=== PATIENT | female | born 1965 | race Caucasian/White ===

== ENCOUNTER 2021-04-21 18:51 | Inpatient (IN) | payer OTHER, SELFPAY ==
[2021-04-21] VITALS (9 sets, daily range): BP systolic 105–136; BP diastolic 82–98; PULSE 66–70; RESP 16–25; TEMP 35.5–37.1; O2SAT 97–100; BMI 31.1; BMI 27.8
--- NOTE | 2021-04-21 18:59 | EKG12_ITS ---
Test Reason : NEURO Blood Pressure : / mmHG Vent. Rate : 070 BPM Atrial Rate : 070 BPM P-R Int : 172 ms QRS Dur : 098 ms QT Int : 412 ms P-R-T Axes : 046 013 010 degrees QTc Int : 444 ms Normal sinus rhythm Normal ECG Confirmed by MARA RICO, SAIMA ([id number]), field map editor ISAMAR RANGEL ([id number]) on 04/24/2021 1:49:44 PM Referred By: BB Confirmed By:SAIMA TERRY MD
[2021-04-21 19:01] LABS: Bedside Glucose 107 mg/dL (70-110)
--- NOTE | 2021-04-21 19:01 | ED.VIS.STROK ---
HPI History of Present Illness Chief Complaint: Neuro S/Sx Informant: patient and spouse/S.O. Onset/Context/Timing Onset: Days (2-3) Context: Gradual Onset (With acute worsening about an hour prior to arrival) Timing: Continuous Quality and Location: Positive for Left Facial Droop, Left Face Parasthesia, Left Arm Parasthesia, Left Arm Weakness, Slurred Speech and Difficulty with Ambulation; Negative for Expressive Aphasia and Receptive Aphasia Current Severity: Moderate Maximum Severity: Moderate Worsened by: Unknown Relieved by: Unknown Associated Symptoms Associated Symptoms: Positive for Headache (Migraine), Nausea and Vomiting; Negative for Chest Pain Narrative Narrative: Patient with history of migraines but never neurologic symptoms, she states she started having a migraine for 3 days ago and has been there ever since, and she has had tingling in her left arm that started 3 days ago as well, as well as her left lower face. Today everything got worse, she was having weakness in her arm and trouble walking. 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 She states no surgery was recommended because of its precarious location. She has been compliant with her medications. She also took a Xanax and had some alcohol prior to arrival here [facility]. Along with the migraine, she has had retro-orbital right eye discomfort, nausea, vomiting, some blurred vision but no diplopia. Denies any recent head injury or recent illness. [facility] Medical History (Updated 04/21/21 @ 20:[address] Jose L France MD) Anxiety Carotid aneurysm, right Depression GERD (gastroesophageal reflux disease) Hyperlipidemia Hypertension Migraines Substance abuse Home Medications alprazolam 0.5 mg DAILY 04/21/21 [History Last Taken Unknown] amlodipine 10 mg DAILY 04/21/21 [History Last Taken Unknown] atorvastatin 10 mg DAILY 04/21/21 [History Last Taken Unknown] cetirizine [Zyrtec] 10 mg PO DAILY PRN 04/21/21 [History Last Taken Unknown] cholecalciferol (vitamin D3) [Vitamin D3] 125 mcg PO DAILY 04/21/21 [History Last Taken Unknown] clopidogrel 75 mg DAILY 04/21/21 [History Last Taken Unknown] duloxetine 60 mg PO DAILY 04/21/21 [History Last Taken Unknown] hydrochlorothiazide 25 mg DAILY 04/21/21 [History Last Taken Unknown] losartan 100 mg DAILY 04/21/21 [History Last Taken Unknown] metoprolol succinate 50 mg PO DAILY 04/21/21 [History Last Taken Unknown] omega-3 fatty acids-vitamin E [Fish Oil] 2 cap DAILY 04/21/21 [History Last Taken Unknown] Allergy/AdvReac Type Severity Reaction Status Date / Time No Known Allergies Allergy Verified 04/21/21 18:57 Social History Smoking Status: Never smoker ROS ROS ED Constitutional Constitutional ED: Denies chills or fever(s) Eyes Eyes: Reports as per HPI, blurry vision and photophobia; Denies diplopia ENT ENT ED: Denies rhinorrhea or sore throat Cardiovascular Cardiovascular: Denies chest pain or palpitations Respiratory/Chest Respiratory/Chest: Denies cough or dyspnea Gastrointestinal Gastrointestinal: Denies abdominal pain or diarrhea Genitourinary Genitourinary ED: Denies dysuria or hematuria Musculoskeletal Musculoskeletal: Denies back pain or neck pain Integumentary Denies abscess or rash Neurologic Neurologic: Reports as per HPI, headache(s), numbness and weakness Psychiatric Psychiatric: Denies anxiety or suicidal thoughts EXAM Physical Exam Const Vital Signs: 04/21/21 18:53 04/21/21 19:06 04/21/21 19:30 Temperature 95.9 F L Temperature Source Temporal Pulse Rate 70 70 66 Respiratory Rate 25 H 18 23 H Blood Pressure 136/98 H 123/95 H 107/82 H Blood Pressure Mean 110 104 90 Pulse Ox 99 99 97 Oxygen Delivery Method Room Air Room Air Room Air 04/21/21 20:00 04/21/21 20:12 Temperature Temperature Source Pulse Rate 66 Respiratory Rate 18 18 Blood Pressure 105/85 H Blood Pressure Mean 91 Pulse Ox 98 Oxygen Delivery Method Room Air Positive well nourished and well developed General Appearance ED: well developed and NAD HEENT Reports moist mucous membranes normocephalic and atraumatic Eyes PERRL and EOMs intact bilaterally Eyes Narrative: Mild photophobia. All visual patel intact. Neck full ROM and supple Resp normal respiratory effort and clear to auscultation bilaterally Cardio regular rate, regular rhythm and no murmurs GI non-tender and non-distended Auscultation: normoactive bowel sounds Palpation: soft Back/Spine no CVA tenderness General Back: other FROM Extremity normal to inspection General Extremety ED: Negative for edema, pulses abnormal or tenderness General Extremity: Negative for edema or pulses abnormal Neuro oriented x3 Sensorium / Orientation: awake and alert Psych mental status grossly normal Mood & Affect: anxious Skin no rashes or lesions noted and no wounds Rashes: no rashes STROKE Vital Signs/Narrative: Vital Signs Temp Pulse Resp BP Pulse Ox 04/21/21 20:12 18 04/21/21 20:00 66 18 105/85 H 98 04/21/21 19:30 66 23 H 107/82 H 97 04/21/21 19:06 70 18 123/95 H 99 04/21/21 18:53 95.9 F L 70 25 H 136/98 H 99 NIHSS Initial: 1a Level of Consciousness: 0 1b LOC Questions (Score 2 if aphasic/stupor): 0 1c LOC Commands (Only score 1st attempt): 0 2 Best Gaze (If aphasic, use reflexive mvmts.): 0 3 Visual: 0 4 Facial Palsy: 2 5 Motor Arm Right (UN = amputation/fusion): 0 5 Motor Arm Left: 1 6 Motor Leg Right: 0 6 Motor Leg Left: 0 7 Limb ataxia (Only + if out of proportion): 2 8 Sensory (Aphasia/stupor=0 or 1, coma=2): 1 9 Best Language: 0 10 Dysarthria (mute, coma=2, intubated=UN): 1 11 Extinction and Inattention (only scored if +): 0 Total Score: 7 MDM MDM MDM Narrative Medical decision making narrative: Patient's left arm weakness improved during the course of her ED observation/treatment, she was given some Reglan for her headache which did transiently improve. Certainly migraine headache with neurologic symptoms is in the differential, however she has never had that before with her migraines which have been chronically recurring, so the plan will be to admit her to the hospital for further imaging including MRI to rule out the possibility of acute ischemic stroke. Her vital signs are stable, CT angiography shows no LVO, and she does not meet any TPA criteria since her symptoms started couple days ago. CT and CT angiography did note the large calcified right carotid artery aneurysm at the base of her skull, there is flow through it. Lab Data Attestation: I reviewed the patient's lab results. Labs: Laboratory Results - last 24 hr 0504/21/21 04/21/21 18:56 19:02 19:02 WBC 5.7 RBC 4.34 Hgb 13.3 Hct 40.0 MCV 92.2 MCH 30.6 MCHC 33.3 RDW Std Deviation 41.9 RDW Coeff of Naveed 12.3 Plt Count 215 MPV 9.0 Immature Gran % (Auto) 0.400 Neut % (Auto) 66.3 Lymph % (Auto) 20.7 Lander % (Auto) 10.0 Eos % (Auto) 2.1 Baso % (Auto) 0.5 Absolute Neuts (auto) 3.8 Absolute Lymphs (auto) 1.18 Nucleated RBC % 0 PT 11.7 INR 0.9 APTT 25.6 Sodium Potassium Chloride Carbon Dioxide Anion Gap BUN Creatinine Estim Creat Clear Calc Est GFR (MDRD) Af Amer Est GFR (MDRD) Non-Af BUN/Creatinine Ratio Glucose Calcium Troponin I POC Glucose 107 04/21/21 04/21/21 19:02 19:44 WBC RBC Hgb Hct MCV MCH MCHC RDW Std Deviation RDW Coeff of Naveed Plt Count MPV Immature Gran % (Auto) Neut % (Auto) Lymph % (Auto) Lander % (Auto) Eos % (Auto) Baso % (Auto) Absolute Neuts (auto) Absolute Lymphs (auto) Nucleated RBC % PT INR APTT Sodium 134 L Potassium 3.8 Chloride 102 Carbon Dioxide 22.0 Anion Gap 10 BUN 10 Creatinine 0.92 Estim Creat Clear Calc 60.71 Est GFR (MDRD) Af Amer 81 Est GFR (MDRD) Non-Af 67 BUN/Creatinine Ratio 10.9 Glucose 101 Calcium 9.0 Troponin I < 0.015 POC Glucose 98 Radiography Diagnostic Testing: Radiology Impression Brain CT 04/21/21 19:30 IMPRESSION: 1. No acute intracranial abnormality. There is minimal small vessel ischemia in the right frontal lobe. 2. Large peripherally calcified structure at the right skull base which may represent a large partly calcified aneurysm of the distal right internal carotid artery. Further evaluation with CTA of the carotid and cranial vessels is recommended. 3. Aspects score 10 Individualized dose optimization techniques were used for this CT. at 1945 Reported and signed by: Herminio Churchill MD Electronically Signed: Herminio Churchill MD at 19:44 EDT Tel , Service support , ADDENDUM: 04/21/211956 IMPRESSION: 1. No acute intracranial abnormality. There is minimal small vessel ischemia in the right frontal lobe. 2. Large peripherally calcified structure at the right skull base which may represent a large partly calcified aneurysm of the distal right internal carotid artery. Further evaluation with CTA of the carotid and cranial vessels is recommended. 3. Aspects score 10 Individualized dose optimization techniques were used for this CT. at 1945 Reported and signed by: Herminio Churchill MD N.B. : The above information has been verbally conveyed by Herminio Churchill MD to Jose L France MD , , on 04/21/2021 19:50:58 (ET). Electronically Signed: Herminio Churchill MD at 19:44 EDT Tel , Service support , Chest X-Ray 04/21/21 19:33 IMPRESSION: No radiographic evidence of acute cardiopulmonary disease. at 2009 Reported and signed by: Herminio Churchill MD Electronically Signed: Herminio Churchill MD at 20:08 EDT Tel , Service support , Head/Neck CTA 04/21/21 19:33 IMPRESSION: Large peripherally calcified aneurysm of the distal right internal carotid artery that extends from the C3 vertebral body up to the skull base. There is some soft plaque also present within the aneurysm. There is no evidence of rupture or leakage. No other abnormalities are identified. Individualized dose optimization techniques were used for this CT. at 1956 Reported and signed by: Herminio Churchill MD Electronically Signed: Herminio Churchill MD at 19:55 EDT Tel , Service support , ADDENDUM: 04/21/212012 IMPRESSION: Large peripherally calcified aneurysm of the distal right internal carotid artery that extends from the C3 vertebral body up to the skull base. There is some soft plaque also present within the aneurysm. There is no evidence of rupture or leakage. No other abnormalities are identified. Individualized dose optimization techniques were used for this CT. at 1956 Reported and signed by: Herminio Churchill MD N.B. : The above information has been verbally conveyed by Herminio Churchill MD to Jose L France MD, , on 04/21/2021 20:06:06 (ET). Electronically Signed: Herminio Churchill MD at 19:55 EDT Tel , Service support , EKG Initial EKG: Attestation: I personally reviewed and interpreted this EKG as follows: Interpretation: Sinus Rhythm and No Acute Injury Pattern Comments: Normal EKG Stroke Documentation Questions Stroke Team Activated: No (Due to timing, 2-3 days of symptoms) Was Patient considered for Endovascular Intervention?: No (Negative CTA) IV Alteplase (t-PA) Administered: No (Not indicated due to timing) Discharge Plan Dx/Rx/DC Orders Clinical Impression: Acute left hemiparesis, Headache, migraine, Aneurysm of extracranial portion of right internal carotid artery Disposition Disposition: Acute Care [facility]
--- NOTE | 2021-04-21 19:03 | ED.RN ---
NO OLD EKGS IN MUSE
[2021-04-21] MEDS: Metoclopramide 10 MG/2 ML Vial 5 MG IV (19:08)
[2021-04-21 19:09] LABS: Absolute Lymphocyte Count 1.18 X10^3/uL (0.83-4.51); Absolute Neutrophil Count 3.8 X10^3/uL (2.0-7.7); Basophil# 0.03 X10^3/uL; Basophil% 0.5 % (0-1); Eosinophil# 0.12 X10^3/uL; Eosinophils% 2.1 % (0-5); Hemoglobin 13.3 g/dL (12.0-15.0); Lymphocyte # 1.18 X10^3/ul (0.83-4.51); Lymphocyte % 20.7 % (19-41); Mean Corp Hgb Conc 33.3 g/dL (32-36); Mean Corpuscular Hgb 30.6 pg (27.0-32.0); Mean Corpuscular Volume 92.2 fL (81-99); Monocyte# 0.57 X10^3/uL; NRBC Flagged by Analyzer 0 % (0-5); Neutrophil # 3.78 X10^3/uL (2.7-7.7); Neutrophil % 66.3 % (47-70); Platelet Count 215 K/mm3 (150-450); RBC Distribution Width CV 12.3 % (11.6-14.6); RBC Distribution Width SD 41.9 fl (35.1-43.9); Red Blood Count 4.34 M/mm3 (4.2-5.4); White Blood Count 5.7 K/mm3 (4.4-11.0)
[2021-04-21 19:19] LABS: International Normalized Ratio 0.9; Prothrombin Time (Protime)PT. 11.7 SECONDS (11.7-14.9)
[2021-04-21 19:20] LABS: Partial Thromboplast Time 25.6 Seconds (24.1-36.2)
[2021-04-21 19:28] LABS: Anion Gap 10 (5-15); BUN 10 mg/dL (7-18); BUN/Creat Ratio 10.9 RATIO (10-20); Chloride 102 mmol/L (98-107); Creatinine, Serum 0.92 mg/dL (0.55-1.02); EST Glomerular Filtration Rate 67 mL/min (>60); Est Glom Filt Rate - Afr Amer 81 mL/min (>60); Estimated Creatinine Clearance 60.71 ml/min; Glucose 101 mg/dL (74-106); Potassium 3.8 mmol/L (3.5-5.1); Sodium Level 134 mmol/L (136-145)
--- NOTE | 2021-04-21 19:30 | CT_ITS ---
We are attempting to reach an attending provider to discuss findings. An addendum with communication details will be sent when the communication is complete. EXAM: CT HEAD WITHOUT INTRAVENOUS CONTRAST : 1965 CLINICAL INDICATION: Neuro deficit, acute, stroke suspected TECHNIQUE: Multiple axial images were obtained of the head without intravenous contrast. This CT exam was performed using one or more of the following dose reduction techniques: automated exposure control, adjustment of the mA and/or kV according to patient size, and/or use of iterative reconstruction technique. This report was created using [employer] report [employer] technology. COMPARISON: None FINDINGS: BRAIN AND EXTRA-AXIAL SPACES: There is minimal hypoattenuation in the subcortical white matter of the right frontal lobe. No intra- or extra-axial hemorrhage. No evidence of acute infarct. No intracranial mass or mass effect. There is preservation of the galeas/white matter interface. Posterior fossa structures are unremarkable. Ventricles are appropriate for age. No hydrocephalus. Basal cisterns are patent. BONES/JOINTS: Unremarkable. No discrete lytic or blastic abnormalities. VASCULATURE: There is a large peripherally calcified tubular structure at the right skull base that measures 2.5 x 2.9 cm which may represent a large peripherally calcified aneurysm of the distal internal carotid artery. SINUSES: Unremarkable as visualized. Clear. MASTOID AIR CELLS: Unremarkable. Clear. ORBITS: Visualized globes, extraocular muscles, optic nerves and retrobulbar fat appear unremarkable. CT/STROKE Brain/Head without Cont IMPRESSION: 1. No acute intracranial abnormality. There is minimal small vessel ischemia in the right frontal lobe. 2. Large peripherally calcified structure at the right skull base which may represent a large partly calcified aneurysm of the distal right internal carotid artery. Further evaluation with CTA of the carotid and cranial vessels is recommended. 3. Aspects score 10 Individualized dose optimization techniques were used for this CT. at 1945 Reported and signed by: Herminio Churchill MD Electronically Signed: Herminio Churchill MD at 19:44 EDT Tel , Service support ,
--- NOTE | 2021-04-21 19:33 | CT_ITS ---
We are attempting to reach an attending provider to discuss findings. An addendum with communication details will be sent when the communication is complete. EXAM: CT ANGIOGRAPHY HEAD AND NECK WITH INTRAVENOUS CONTRAST : 1965 CLINICAL INDICATION: Neuro deficit, acute, stroke suspected TECHNIQUE: [employer] [place] [facility] [place]/head and neck CT angiography protocol performed with intravenous contrast. This CT exam was performed using one or more of the following dose reduction techniques: automated exposure control, adjustment of the mA and/or kV according to patient size, and/or use of iterative reconstruction technique. This report was created using [employer] report generation technology. MIP reconstructed images were created and reviewed. CONTRAST: IV 100mL [id number] COMPARISON: None. FINDINGS: HEAD: RIGHT ANTERIOR CEREBRAL ARTERY: Unremarkable. No significant stenosis at the visualized segments. Anterior communicating artery is present. No aneurysm. RIGHT MIDDLE CEREBRAL ARTERY: Unremarkable. No significant stenosis at the visualized segments. No aneurysm. RIGHT POSTERIOR CEREBRAL ARTERY: Unremarkable. No occlusion or significant stenosis. No aneurysm. LEFT ANTERIOR CEREBRAL ARTERY: Unremarkable. No significant stenosis at the visualized segments. No aneurysm. LEFT MIDDLE CEREBRAL ARTERY: Unremarkable. No significant stenosis at the visualized segments. No aneurysm. LEFT POSTERIOR CEREBRAL ARTERY: Unremarkable. No occlusion or significant stenosis. No aneurysm. BASILAR ARTERY: Unremarkable. No significant stenosis. No aneurysm. GREAT VESSELS OF AORTIC ARCH: Unremarkable. Normal anatomy, patent. OTHER VASCULATURE: No vascular malformation. NECK: RIGHT COMMON CAROTID ARTERY: Unremarkable. No significant stenosis. No dissection or occlusion. RIGHT INTERNAL CAROTID ARTERY: There is a large peripherally calcified aneurysm of the distal right internal carotid artery that measures 2.8 x 3.1 x 7.0 cm. Begins approximately at the C3 level and extends up to the skull base. There is a large amount of soft plaque posteriorly but there is no evidence of stenosis or occlusion within this aneurysm. There is no rupture. RIGHT EXTERNAL CAROTID ARTERY: Unremarkable. No occlusion. RIGHT VERTEBRAL ARTERY: Unremarkable. No significant stenosis. No dissection or occlusion. LEFT COMMON CAROTID ARTERY: Unremarkable. No significant stenosis. No dissection or occlusion. LEFT INTERNAL CAROTID ARTERY: Unremarkable. No significant stenosis. No dissection or occlusion. LEFT EXTERNAL CAROTID ARTERY: Unremarkable. No occlusion. LEFT VERTEBRAL ARTERY: Unremarkable. No significant stenosis. No dissection or occlusion. LUNG APICES: Unremarkable as visualized. SOFT TISSUES: Unremarkable. CAROTID STENOSIS REFERENCE USING NASCET CRITERIA: % ICA stenosis = (1 - narrowest ICA diameter/diameter of distal cervical ICA) x 100. Moderate - 50-69% stenosis. Severe - 70-94% stenosis. Near occlusion - 95-99% stenosis. Occluded - 100% stenosis. CT/STROKE CTA Head AND Neck W/Con IMPRESSION: Large peripherally calcified aneurysm of the distal right internal carotid artery that extends from the C3 vertebral body up to the skull base. There is some soft plaque also present within the aneurysm. There is no evidence of rupture or leakage. No other abnormalities are identified. Individualized dose optimization techniques were used for this CT. at 1956 Reported and signed by: Herminio Churchill MD Electronically Signed: Herminio Churchill MD at 19:55 EDT Tel , Service support ,
--- NOTE | 2021-04-21 19:33 | RAD_ITS ---
EXAM: XR CHEST, 1 VIEW : 1965 CLINICAL INDICATION: Neuro deficit, acute, stroke suspected TECHNIQUE: Frontal view of the chest. This report was created using [employer] report generation technology. COMPARISON: None. FINDINGS: LUNGS AND PLEURAL SPACES: Unremarkable. No consolidation or edema. No pneumothorax. No effusion. HEART: Unremarkable. Cardiac silhouette not enlarged. MEDIASTINUM: Central airways and mediastinal contour are unremarkable. BONES/JOINTS: Unremarkable. SOFT TISSUES: Unremarkable. RAD/Chest 1 View IMPRESSION: No radiographic evidence of acute cardiopulmonary disease. at 2009 Reported and signed by: Herminio Churchill MD Electronically Signed: Herminio Churchill MD at 20:08 EDT Tel , Service support ,
--- NOTE | 2021-04-21 19:47 | NURSING ---
Patient able to raise L arm and hold it now. Still has facial droop to left side but states she has always had that.
[2021-04-21 19:56] LABS: Bedside Glucose 98 mg/dL (70-110)
--- NOTE | 2021-04-21 20:30 | PCM.HP.STD ---
Documented by User: SARAH Eastman 04/21/21 20:56 HPI - General HPI Narrative KAYLEEN POSADA, is a 56 F who presents with a 3-day history of migraine and dropping things with her left hand. Patient states that she has a history of migraines but has not had one in many years after beginning treatment for a carotid artery aneurysm in 2011. Patient states that today her weakness in her left hand became worse and her noticed increased left facial drooping as patient has chronic droop. Patient states she also began having difficulties walking. Patient also reports taking a Xanax earlier today along with use of alcohol. [facility] Medical History Anxiety Carotid aneurysm, right Depression GERD (gastroesophageal reflux disease) Hyperlipidemia Hypertension Migraines Substance abuse Home Medications alprazolam 0.5 mg DAILY 04/21/21 [History Last Taken Unknown] amlodipine 10 mg DAILY 04/21/21 [History Last Taken Unknown] atorvastatin 10 mg DAILY 04/21/21 [History Last Taken Unknown] cetirizine [Zyrtec] 10 mg PO DAILY PRN 04/21/21 [History Last Taken Unknown] cholecalciferol (vitamin D3) [Vitamin D3] 125 mcg PO DAILY 04/21/21 [History Last Taken Unknown] clopidogrel 75 mg DAILY 04/21/21 [History Last Taken Unknown] duloxetine 60 mg PO DAILY 04/21/21 [History Last Taken Unknown] hydrochlorothiazide 25 mg DAILY 04/21/21 [History Last Taken Unknown] losartan 100 mg DAILY 04/21/21 [History Last Taken Unknown] metoprolol succinate 50 mg PO DAILY 04/21/21 [History Last Taken Unknown] omega-3 fatty acids-vitamin E [Fish Oil] 2 cap DAILY 04/21/21 [History Last Taken Unknown] Allergy/AdvReac Type Severity Reaction Status Date / Time No Known Allergies Allergy Verified 04/21/21 18:57 Social History Smoking Status: Never smoker ROS Constitutional Constitutional: Reports weakness; Denies anorexia, chills or fatigue Cardiovascular Cardiovascular: Denies chest pain, edema or palpitations Respiratory/Chest Respiratory/Chest: Denies cough, shortness of breath at rest or shortness of breath with exertion Gastrointestinal Gastrointestinal: Denies abdominal pain, constipation, diarrhea, nausea or vomiting Genitourinary Genitourinary: Denies dysuria Musculoskeletal Musculoskeletal: Denies back pain, extremity pain or joint pain Integumentary Integumentary: Denies dry skin Neurologic Neurologic: Reports abnormal gait, dizziness, headache(s), numbness, tingling and weakness Psychiatric Psychiatric: Denies anxiety or depression Endocrine Endocrinology: Denies change in body appearance Hematologic/Lymphatic Hematologic/Lymphatic: Denies easy bleeding or easy bruising Vital Signs Vital Signs Vital Signs: 04/21/21 18:53 04/21/21 19:06 04/21/21 19:30 Temperature 95.9 F L Temperature Source Temporal Pulse Rate 70 70 66 Respiratory Rate 25 H 18 23 H Blood Pressure 136/98 H 123/95 H 107/82 H Blood Pressure Mean 110 104 90 Pulse Ox 99 99 97 Oxygen Delivery Method Room Air Room Air Room Air 04/21/21 20:00 04/21/21 20:12 Temperature Temperature Source Pulse Rate 66 Respiratory Rate 18 18 Blood Pressure 105/85 H Blood Pressure Mean 91 Pulse Ox 98 Oxygen Delivery Method Room Air Weight Weight: 187 lb 4.805 oz Body Mass Index (BMI) 31.1 Physical Exam Const alert and oriented x3 General Appearance: cooperative HEENT normocephalic and head/scalp atraumatic Eyes PERRL Neck supple, no JVD and thyroid normal General: trachea midline Lymph Lymphatic: no lymphadenopathy noted Resp normal respiratory effort, normal air movement and clear to auscultation bilaterally Cardio regular rate, regular rhythm, S1 normal heart sound and S2 normal heart sound GI normal to inspection, nondistended, normoactive bowel sounds, soft to palpation and non-tender Extremity normal capillary refill and no clubbing, cyanosis or edema General Extremity: no tenderness to palpation of joints or extremities Skin General Skin Exam: no breakdown and turgor normal Lesions: no lesions Rashes: no rashes Neuro oriented x3 and CN's II-XII intact bilaterally Neuro Narrative: NIHSS 5, increased left facial droop also noted Coordination / Balance: Negative for [id number] test normal or [id number]-[id number] test normal Speech: speech normal Gait (Neuro): ataxic Sensory Exam: extremities light-touch: decreased (Left upper and lower extremity decreased) and double simultaneous stimulation for sensation abnormal Positive for left-sided extinction Motor Exam: general weakness and movement abnormality noted Psych thought process normal, cooperative and affect normal Appearance: appropriate Lab / Micro Data Result Diagrams: 04/21/21 19:02 04/21/21 19:02 Labs: Laboratory Results - last 24 hr 04/21/21 04/21/21 04/21/21 18:56 19:02 19:02 WBC 5.7 RBC 4.34 Hgb 13.3 Hct 40.0 MCV 92.2 MCH 30.6 MCHC 33.3 RDW Std Deviation 41.9 RDW Coeff of Naveed 12.3 Plt Count 215 MPV 9.0 Immature Gran % (Auto) 0.400 Neut % (Auto) 66.3 Lymph % (Auto) 20.7 Independence % (Auto) 10.0 Eos % (Auto) 2.1 Baso % (Auto) 0.5 Absolute Neuts (auto) 3.8 Absolute Lymphs (auto) 1.18 Nucleated RBC % 0 PT 11.7 INR 0.9 APTT 25.6 Sodium Potassium Chloride Carbon Dioxide Anion Gap BUN Creatinine Estim Creat Clear Calc Est GFR (MDRD) Af Amer Est GFR (MDRD) Non-Af BUN/Creatinine Ratio Glucose Calcium Troponin I POC Glucose 107 04/21/21 04/21/21 19:02 19:44 WBC RBC Hgb Hct MCV MCH MCHC RDW Std Deviation RDW Coeff of Naveed Plt Count MPV Immature Gran % (Auto) Neut % (Auto) Lymph % (Auto) Independence % (Auto) Eos % (Auto) Baso % (Auto) Absolute Neuts (auto) Absolute Lymphs (auto) Nucleated RBC % PT INR APTT Sodium 134 L Potassium 3.8 Chloride 102 Carbon Dioxide 22.0 Anion Gap 10 BUN 10 Creatinine 0.92 Estim Creat Clear Calc 60.71 Est GFR (MDRD) Af Amer 81 Est GFR (MDRD) Non-Af 67 BUN/Creatinine Ratio 10.9 Glucose 101 Calcium 9.0 Troponin I < 0.015 POC Glucose [address] 04/21/21 19:30 IMPRESSION: 1. No acute intracranial abnormality. There is minimal small vessel ischemia in the right frontal lobe. 2. Large peripherally calcified structure at the right skull base which may represent a large partly calcified aneurysm of the distal right internal carotid artery. Further evaluation with CTA of the carotid and cranial vessels is recommended. 3. Aspects score 10 Individualized dose optimization techniques were used for this CT. at 1945 Reported and signed by: Herminio Churchill MD Electronically Signed: Herminio Churchill MD at 19:44 EDT Tel , Service support , ADDENDUM: 04/21/211956 IMPRESSION: 1. No acute intracranial abnormality. There is minimal small vessel ischemia in the right frontal lobe. 2. Large peripherally calcified structure at the right skull base which may represent a large partly calcified aneurysm of the distal right internal carotid artery. Further evaluation with CTA of the carotid and cranial vessels is recommended. 3. Aspects score 10 Individualized dose optimization techniques were used for this CT. at 1945 Reported and signed by: Herminio Churchill MD N.B. : The above information has been verbally conveyed by Herminio Churchill MD to Jose L France MD , MD, on 04/21/2021 19:50:58 (ET). Electronically Signed: Herminio Churchill MD at 19:44 EDT Tel , Service support , Chest X-Ray 04/21/21 19:33 IMPRESSION: No radiographic evidence of acute cardiopulmonary disease. at 2009 Reported and signed by: Herminio Churchill MD Electronically Signed: Herminio Churchill MD at 20:08 EDT Tel , Service support , Head/Neck CTA 04/21/21 19:33 IMPRESSION: Large peripherally calcified aneurysm of the distal right internal carotid artery that extends from the C3 vertebral body up to the skull base. There is some soft plaque also present within the aneurysm. There is no evidence of rupture or leakage. No other abnormalities are identified. Individualized dose optimization techniques were used for this CT. at 1956 Reported and signed by: Herminio Churchill MD Electronically Signed: Herminio Churchill MD at 19:55 EDT Tel , Service support , ADDENDUM: 04/21/212012 IMPRESSION: Large peripherally calcified aneurysm of the distal right internal carotid artery that extends from the C3 vertebral body up to the skull base. There is some soft plaque also present within the aneurysm. There is no evidence of rupture or leakage. No other abnormalities are identified. Individualized dose optimization techniques were used for this CT. at 1956 Reported and signed by: Herminio Churchill MD N.B. : The above information has been verbally conveyed by Herminio Churchill MD to Jose L France MD, , on 04/21/2021 20:06:06 (ET). Electronically Signed: Herminio Churchill MD at 19:55 EDT Tel , Service support , Assessment & Plan Assessment/Plan (1) Acute left hemiparesis: (2) Headache, migraine: QUALIFIERS: Migraine type: unspecified PLAN: 1. Acute left hemiparesis -Admit to PCU for cardiac monitoring and evaluation for stroke -CT is negative for acute intracranial abnormality however there is minimal small vessel ischemia in the right frontal lobe. MRI brain ordered -Echo ordered for a.m. -Lipid profile in a.m. -NIH ischemic stroke every 4 hours with vital signs every 4 hours -OT and PT to eval and treat for left-sided weakness and ataxia -Due to suspicion of stroke we will hold patient's amlodipine, losartan at this time as patient is normotensive. -Will continue Plavix, hydrochlorothiazide, metoprolol -will increase atorvastatin to 80 mg nightly -Cardiac diet ordered, patient passed dysphagia screen in ER. 2. Migraine headache -Patient received treatment for migraine in ER, will continue to monitor symptoms 3. Hypertension -Hold amlodipine and losartan at this time due to suspicion of stroke -We will continue metoprolol and hydrochlorothiazide -Vital signs per protocol 4. Right carotid aneurysm -CT obtained in ER which shows a large peripherally calcified aneurysm of the distal right internal carotid artery that extends from C3 vertebral body up to the skull base with no evidence of rupture or leakage. -Continue Plavix and increased atorvastatin 5. Depression and anxiety -Continue as needed Xanax and duloxetine DVT prophylaxis-subcu Lovenox This patient was seen by SARAH Eastman under the supervision of Dr. Bates. Documented by User: Dr. Breezy Bates MD 04/21/21 21:18 HPI - General General Date of Admission: 04/21/21 [facility] Medical History Anxiety Carotid aneurysm, right Depression GERD (gastroesophageal reflux disease) Hyperlipidemia Hypertension Migraines Substance abuse Home Medications alprazolam 0.5 mg DAILY 04/21/21 [History Last Taken Unknown] amlodipine 10 mg DAILY 04/21/21 [History Last Taken Unknown] atorvastatin 10 mg DAILY 04/21/21 [History Last Taken Unknown] cetirizine [Zyrtec] 10 mg PO DAILY PRN 04/21/21 [History Last Taken Unknown] cholecalciferol (vitamin D3) [Vitamin D3] 125 mcg PO DAILY 04/21/21 [History Last Taken Unknown] clopidogrel 75 mg DAILY 04/21/21 [History Last Taken Unknown] duloxetine 60 mg PO DAILY 04/21/21 [History Last Taken Unknown] hydrochlorothiazide 25 mg DAILY 04/21/21 [History Last Taken Unknown] losartan 100 mg DAILY 04/21/21 [History Last Taken Unknown] metoprolol succinate 50 mg PO DAILY 04/21/21 [History Last Taken Unknown] omega-3 fatty acids-vitamin E [Fish Oil] 2 cap DAILY 04/21/21 [History Last Taken Unknown] Allergy/AdvReac Type Severity Reaction Status Date / Time No Known Allergies Allergy Verified 04/21/21 18:57 Social History Smoking Status: Never smoker Lab / Micro Data Result Diagrams: 04/21/21 19:02 04/21/21 19:02 Addendum Addendum: Hospitalist note: I am seeing this patient in conjunction with Josefina Pearson.. I independently seen and examined the patient. History and physical, laboratory data and imaging studies reviewed and I concur with the above admission and work-up plan. Patient presented to the emergency room because of increasing left facial droop, left hand and left leg weakness. Patient had a history of migraine and she stated over the last 2 days, she has been dropping things of her home her left hand, she has been having difficulty walking due to weakness on the left leg. Patient's noted that patient had chronic left facial droop but it has been increasing over the last couple of days. Patient denied blurred vision or slurred speech. Her routine blood work was unremarkable. Her NIH stroke scale was 7. Because of timing, she was not a candidate for TPA. EKG revealed normal sinus rhythm without evidence of acute ischemic changes or cardiac arrhythmias. CT scan brain showed no acute infarct or hemorrhage, revealed large peripherally calcified aneurysm of the internal carotid artery and this is chronic, no leakage or hemorrhage. CTA of the head and neck revealed large peripherally calcified aneurysm of the distal right internal carotid artery, no other abnormalities identified. Patient is being admitted for acute left hemiparesis and left facial droop likely due to acute stroke. - Physical Exam General: Alert, Oriented x3, Cooperative, No apparent distress. HEENT: Atraumatic, PERRLA, EOMI. Neck: Supple, No JVD, Negative Carotid Bruits, Trachea Midline, Thyroid Normal. Lungs: Clear to auscultation, Normal air movement, No rhonchi, No wheeze, No rales. Cardiovascular: Regular rate, Regular Rhythm, Normal S1, Normal S2, PMI Normal. Abdomen: Bowel Sounds Present, Soft, Non Tender, Non-Distended, No Hepato-splenomegaly. Extremities: No clubbing, No cyanosis, No edema Skin: No rashes, No breakdown Neurological: Left facial droop, minimal left-sided hemiparesis. Power on the right side is 5 x 5. No dysarthria. Vital Signs are stable. Assessment and plan: #1 acute left hemiparesis/left facial droop: Concern for stroke. CT scan brain and CTA of the head and neck reviewed. Patient does have a history of chronic calcified aneurysm of the distal right internal carotid artery and she has been following up at [facility] [place]. No evidence of cerebral bleed or leak. EKG reviewed as above. Patient still have focal weakness on the left side as well as left facial droop. Her blood pressure stable. Plan: Admit to PCU, cardiac monitoring, NIH stroke scale, continue aspirin and Plavix, Lipitor 80 mg nightly, MRI brain, 2D echocardiogram, gentle IV fluids for hydration, Tylenol as needed, Zofran as needed, PT OT evaluation and treatment. #2 chronic calcified large distal right internal carotid artery aneurysm: No evidence of leak or hemorrhage on the CTA neck. Plan to continue Plavix, aspirin and statins. Recommend follow-up with [facility] [place] after discharge. #3 other chronic medical problems: Stable, continue current medication as above. This note was generated with [employer] dictation software. It may contain incorrect words, spelling, and punctuation that were not noted in checking the note before signing. Visit Charges Inpatient E&M: 70051 Init Hosp L3
[2021-04-21 21:40] LABS: Cholesterol 201 mg/dL (200); High Density Lipoprotein 76 mg/dL; Triglycerides 282 mg/dL; Very Low Density Lipoprotein 56 mg/dL (5-40)
[2021-04-21] MEDS: 0.9% Normal Saline 1,000 ML 75 ML IV (21:54)
[2021-04-21] MEDS: 0.9% Saline Lock 10 ML Syringe IV (21:55)
[2021-04-21] MEDS: Atorvastatin Calcium 80 MG Tablet PO (22:56)
[2021-04-22] VITALS (9 sets, daily range): BP systolic 111–131; BP diastolic 77–94; PULSE 72–81; RESP 14–16; TEMP 36.7–37.1; O2SAT 94–98
--- NOTE | 2021-04-22 09:00 | MRI_ITS ---
STUDY: MRI BRAIN WITHOUT CONTRAST REASON FOR EXAM: Female, 56 years old. Left hemiparesis, stroke TECHNIQUE: Standardized multiplanar fat and water weighted pulse sequences were obtained. COMPARISON: None. FINDINGS: Normal size of the ventricles and extra-axial spaces for the patient''s age. There are multiple white matter hyperintensities, distributed throughout the deep white matter tracts of the cerebral hemispheres, consistent with moderate chronic white matter ischemic changes. Scattered areas of right frontal parietal and right posterior parietal occipital punctate regions of DWI signal consistent with multiple areas of watershed punctate infarct extending to the right peripheral temporal lobe likely consistent with embolic phenomena given appearance. These regions correspond to punctate areas of likely chronic ischemia within the watershed zone on FLAIR imaging. Normal bilateral basal ganglia. Normal thalami. There is no extra-axial fluid accumulation. Normal flow voids within the major intracranial circulation suggesting patency by spin echo criteria. Normal sella turcica, pituitary gland, infundibular stalk, optic chiasm and hypothalamus. Normal tectal plate and pineal gland. Normal midbrain, nicole and medulla. Normal cerebellum. Normal basal cisterns. Normal bilateral temporal bones. Normal bilateral internal auditory canals. No demonstrated orbital abnormality, within the constraints of a routine brain study. Normal visualized paranasal sinuses. Normal calvarium and skull base. Normal visualized soft tissue structures. Normal visualized upper cervical spine. Partially viewed right skull base and right ICA large aneurysm better characterized on CT 8 04/21/2021. MRI/Brain without Contrast IMPRESSION: 1. Findings consistent with likely acute on chronic areas of right watershed zone punctate infarcts and mildly scattered within the basal ganglia and right temporal lobe corresponding to chronic areas of FLAIR signal within these regions. No large territorial ischemia is evident. 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 2. Partially viewed right skull base and right ICA large aneurysm better characterized on CTA 04/21/2021. Electronically Signed: Benigno Bryant DO at 10:49 EDT , Service support ,
[2021-04-22] MEDS: hydroCHLOROthiazide 25 MG Tablet PO (09:09)
[2021-04-22] MEDS: ALPRAZolam 0.5 MG Tablet PO (09:09)
[2021-04-22] MEDS: Enoxaparin 40 MG/0.4 ML Syringe SC (09:09)
[2021-04-22] MEDS: Metoprolol(XL)Succ 50 MG Tablet PO (09:09)
[2021-04-22] MEDS: DULoxetine Hcl 60 MG Capsule PO (09:09)
[2021-04-22] MEDS: Clopidogrel Bisulfate 75 MG Tablet PO (09:09)
--- NOTE | 2021-04-22 11:45 | TELEMED_ITS ---
[facility] has confirmed receipt of a request for visit. This document confirms receipt of the order initiating the consult. To find the results of the consultation, please view the patient's reports for the scanned Telemed Consult.
--- NOTE | 2021-04-22 12:19 | PN.HOSP_ITS ---
Subjective Subjective Patient seen and examined. She was admitted with a complaint of headache and facial droop. She still has a headache today which she states is due to her history of migraines. She thinks her facial droop is mainly on the left side of her face and says she has a chronic facial droop but her had told her it was getting worse. She denies any numbness or tingling in any extremities. Review of some's otherwise negative. She has remained hemodynamically stable. Objective Data Objective Data Vital Signs: Vital Signs Temp Pulse Resp BP Pulse Ox 98.8 F 76 14 127/94 H 96 04/22/21 09:10 04/22/21 09:10 04/22/21 09:10 04/22/21 09:10 04/22/21 09:10 Oxygen Delivery Method Room Air Weight: 183 lb 6.793 oz Body Mass Index (BMI) 27.8 Intake & Output: Intake and Output for Last 24 Hours 04/20/21 04/21/21 04/22/21 23:59 23:59 23:59 Intake Total 440.17 / 440.17 1193.75 / 1193.75 Balance 440.17 / 440.17 1193.75 / 1193.75 Lab / Micro Data Result Diagrams: 04/21/21 19:02 04/21/21 19:02 Labs: Laboratory Results - last 24 hr 04/21/21 04/21/21 04/21/21 18:56 19:02 19:02 WBC 5.7 RBC 4.34 Hgb 13.3 Hct 40.0 MCV 92.2 MCH 30.6 MCHC 33.3 RDW Std Deviation 41.9 RDW Coeff of Naveed 12.3 Plt Count 215 MPV 9.0 Immature Gran % (Auto) 0.400 Neut % (Auto) 66.3 Lymph % (Auto) 20.7 [place] % (Auto) 10.0 Eos % (Auto) 2.1 Baso % (Auto) 0.5 Absolute Neuts (auto) 3.8 Absolute Lymphs (auto) 1.18 Nucleated RBC % 0 PT 11.7 INR 0.9 APTT 25.6 Sodium Potassium Chloride Carbon Dioxide Anion Gap BUN Creatinine Estim Creat Clear Calc Est GFR (MDRD) Af Amer Est GFR (MDRD) Non-Af BUN/Creatinine Ratio Glucose Calcium Troponin I Triglycerides Cholesterol LDL Cholesterol VLDL Cholesterol HDL Cholesterol POC Glucose 107 05/29/21 05/29/21 05/29/21 19:02 19:02 19:44 WBC RBC Hgb Hct MCV MCH MCHC RDW Std Deviation RDW Coeff of Naveed Plt Count MPV Immature Gran % (Auto) Neut % (Auto) Lymph % (Auto) [place] % (Auto) Eos % (Auto) Baso % (Auto) Absolute Neuts (auto) Absolute Lymphs (auto) Nucleated RBC % PT INR APTT Sodium 134 L Potassium 3.8 Chloride 102 Carbon Dioxide 22.0 Anion Gap 10 BUN 10 Creatinine 0.92 Estim Creat Clear Calc 60.71 Est GFR (MDRD) Af Amer 81 Est GFR (MDRD) Non-Af 67 BUN/Creatinine Ratio 10.9 Glucose 101 Calcium 9.0 Troponin I < 0.015 Triglycerides 282 H Cholesterol 201 H LDL Cholesterol 69 VLDL Cholesterol 56 H HDL Cholesterol 76 POC Glucose 98 Radiography Diagnostic Testing: Radiology Impression Brain CT 04/21/21 19:30 IMPRESSION: 1. No acute intracranial abnormality. There is minimal small vessel ischemia in the right frontal lobe. 2. Large peripherally calcified structure at the right skull base which may represent a large partly calcified aneurysm of the distal right internal carotid artery. Further evaluation with CTA of the carotid and cranial vessels is recommended. 3. Aspects score 10 Individualized dose optimization techniques were used for this CT. at 1945 Reported and signed by: Herminio Churchill MD Electronically Signed: Herminio Churchill MD at 19:44 EDT Tel , Service support , ADDENDUM: 04/21/211956 IMPRESSION: 1. No acute intracranial abnormality. There is minimal small vessel ischemia in the right frontal lobe. 2. Large peripherally calcified structure at the right skull base which may represent a large partly calcified aneurysm of the distal right internal carotid artery. Further evaluation with CTA of the carotid and cranial vessels is recommended. 3. Aspects score 10 Individualized dose optimization techniques were used for this CT. at 1945 Reported and signed by: Herminio Churchill MD N.B. : The above information has been verbally conveyed by Herminio Churchill MD to Jose L France MD , MD, on 04/21/2021 19:50:58 (ET). Electronically Signed: Herminio Churchill MD at 19:44 EDT Tel , Service support , Chest X-Ray 04/21/21 19:33 IMPRESSION: No radiographic evidence of acute cardiopulmonary disease. at 2009 Reported and signed by: Herminio Churchill MD Electronically Signed: Herminio Churchill MD at 20:08 EDT Tel , Service support , Head/Neck CTA 04/21/21 19:33 IMPRESSION: Large peripherally calcified aneurysm of the distal right internal carotid artery that extends from the C3 vertebral body up to the skull base. There is some soft plaque also present within the aneurysm. There is no evidence of rupture or leakage. No other abnormalities are identified. Individualized dose optimization techniques were used for this CT. at 1956 Reported and signed by: Herminio Churchill MD Electronically Signed: Herminio Churchill MD at 19:55 EDT Tel , Service support , ADDENDUM: 04/21/212012 IMPRESSION: Large peripherally calcified aneurysm of the distal right internal carotid artery that extends from the C3 vertebral body up to the skull base. There is some soft plaque also present within the aneurysm. There is no evidence of rupture or leakage. No other abnormalities are identified. Individualized dose optimization techniques were used for this CT. at 1956 Reported and signed by: Herminio Churchill MD N.B. : The above information has been verbally conveyed by Herminio Churchill MD to Jose L France MD, MD, on 04/21/2021 20:06:06 (ET). Electronically Signed: Herminio Churchill MD at 19:55 EDT Tel , Service support , Brain MRI 04/22/21 09:00 IMPRESSION: 1. Findings consistent with likely acute on chronic areas of right watershed zone punctate infarcts and mildly scattered within the basal ganglia and right temporal lobe corresponding to chronic areas of FLAIR signal within these regions. No large territorial ischemia is evident. 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 2. Partially viewed right skull base and right ICA large aneurysm better characterized on CTA 04/21/2021. Electronically Signed: Benigno Bryant DO at 10:49 EDT , Service support , Physical Exam Const alert, oriented x3 and no apparent distress Exam Limitations: no limitations HEENT head/scalp atraumatic and moist oral mucous membranes Head and Scalp: normocephalic Eyes PERRL, EOMs intact bilaterally and conjunctivae normal Neck no lymphadenopathy Resp normal respiratory effort, no retractions, no use of accessory muscles and clear to auscultation bilaterally Cardio regular rate, regular rhythm, S1 normal heart sound, S2 normal heart sound and no murmurs GI normal to inspection, nondistended, normoactive bowel sounds, soft to palpation, non-tender and non-distended Extremity normal to inspection, full ROM and no clubbing, cyanosis or edema Peripheral Pulses: Yes pulses 2+ throughout Skin no rashes or lesions noted Neuro oriented x3 Neuro Narrative: mild left sided facial droop. Power is 5/5 iin all extremities, normal reflexes and sensation is intact Sensorium / Orientation: alert Psych affect normal Assessment & Plan Assessment/Plan (1) Headache, migraine: QUALIFIERS: Migraine type: unspecified (2) Acute left hemiparesis: PLAN: #Left facial droop * Patient currently has no hemiparesis. She had complained of dropping things accidentally with her left hand on admission but is now resolved. * CT of the brain showed minimal small vessel ischemia in the frontal right lobe. 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 * CT a of the head and neck show a large peripherally calcified aneurysm of the distal right internal carotid artery extending from the C3 vertebral body up to the base of the scalp with no evidence of rupture or leakage. * [facility] neurology consulted. On Plavix and statin. We will add on aspirin. * PT OT on board. Fall precautions. * #Migraine: Headache is currently improving. Will put on Fioricet. #Hypertension: * Amlodipine and losartan held on admission * Metoprolol and hydrochlorothiazide continued. * Blood pressure currently stable #Right internal carotid artery aneurysm * CTA head and neck as above * States she is to follow-up with [facility] but has not followed up in about 6 years because the cost is prohibitive. * [facility] neurology consulted. Await recs. Currently on high intensity statin. * #Depression and anxiety: On Xanax and duloxetine DVT prophylaxis: Lovenox ? Visit Charges Inpatient E&M: 90555 Subs Hosp L3
[2021-04-22] MEDS: Aspirin 81 MG TAB.CHEW PO (14:04)
--- NOTE | 2021-04-22 15:21 | DS.PCM_ITS ---
Providers Date of Admission: 04/21/21 Primary Care Physician: PETE ARRINGTON Reason For Visit: LEFT HEMIPARESIS, POSSIBLE STROKE Diagnosis Discharge Diagnosis (1) Headache, migraine: Status: Acute Code(s): G43.909 - Migraine, unspecified, not intractable, without status migrainosus Qualifiers: Migraine type: unspecified (2) Acute left hemiparesis: Status: Acute Code(s): G81.94 - Hemiplegia, unspecified affecting left nondominant side Medications at Discharge Home Medications alprazolam 0.5 mg DAILY 04/21/21 amlodipine 10 mg DAILY 04/21/21 atorvastatin 10 mg DAILY 04/21/21 cetirizine [Zyrtec] 10 mg PO DAILY PRN 04/21/21 cholecalciferol (vitamin D3) [Vitamin D3] 125 mcg PO DAILY 04/21/21 clopidogrel 75 mg DAILY 04/21/21 duloxetine 60 mg PO DAILY 04/21/21 hydrochlorothiazide 25 mg DAILY 04/21/21 losartan 100 mg DAILY 04/21/21 metoprolol succinate 50 mg PO DAILY 04/21/21 omega-3 fatty acids-vitamin E [Fish Oil] 2 cap DAILY 04/21/21 aspirin 325 mg PO DAILY 04/22/21 Hospital Course Operations None Procedures None Summary of Care Provided Minutes Spent on Discharge: 60 Hospital Course: Patient is a 56-year-old female with past medical history of migraines and a right internal carotid aneurysm who was admitted through the ED on 04/21/2021 with a complaint of headache and dropping things with the left hand. He said the weakness in the left hand that gradually worsened and her had noticed that her existing left facial droop which was chronic and w orsened also. She also had difficulty walking. CT of the brain done in the ED was negative for any acute intracranial pathology. CTA of the head and neck done showed a chronic calcified large right internal carotid artery aneurysm with no evidence of leakage or hemorrhage. Patient says she has been following up at [facility] but on further inquiry, stated she had not followed up there in about 6 years because of the prohibitive cost. Patient was on Plavix and statins and this was continued. 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 Her blood pressure medications were held on admission. Aspirin was added onto her Plavix and statin. [facility] neurology was consulted and recommended that patient be transferred to a tertiary center for evaluation as the likely source of emboli was the internal carotid artery aneurysm. 2D echo had been ordered but this could not be done before patient was transferred to [facility]. [facility] was contacted for transfer on account of need for vascular surgery evaluation for right internal carotid artery aneurysm and she was accepted to the neuro hospitalist service. Patient was transferred to [facility] on 04/22/2021. Patient was seen and examined prior to discharge. Physical examination findings, please refer to hospitalist progress note dated 04/22/2021. ABG / Lab / Microbiology Data Result Diagrams: 04/21/21 19:02 04/21/21 19:02 Laboratory: Laboratory Results - last 24 hr 04/21/21 04/21/21 04/21/21 18:56 19:02 19:02 WBC 5.7 RBC 4.34 Hgb 13.3 Hct 40.0 MCV 92.2 MCH 30.6 MCHC 33.3 RDW Std Deviation 41.9 RDW Coeff of Naveed 12.3 Plt Count 215 MPV 9.0 Immature Gran % (Auto) 0.400 Neut % (Auto) 66.3 Lymph % (Auto) 20.7 [place] % (Auto) 10.0 Eos % (Auto) 2.1 Baso % (Auto) 0.5 Absolute Neuts (auto) 3.8 Absolute Lymphs (auto) 1.18 Nucleated RBC % 0 PT 11.7 INR 0.9 APTT 25.6 Sodium Potassium Chloride Carbon Dioxide Anion Gap BUN Creatinine Estim Creat Clear Calc Est GFR (MDRD) Af Amer Est GFR (MDRD) Non-Af BUN/Creatinine Ratio Glucose Calcium Troponin I Triglycerides Cholesterol LDL Cholesterol VLDL Cholesterol HDL Cholesterol POC Glucose 107 04/21/21 04/21/21 04/21/21 19:02 19:02 19:44 WBC RBC Hgb Hct MCV MCH MCHC RDW Std Deviation RDW Coeff of Naveed Plt Count MPV Immature Gran % (Auto) Neut % (Auto) Lymph % (Auto) [place] % (Auto) Eos % (Auto) Baso % (Auto) Absolute Neuts (auto) Absolute Lymphs (auto) Nucleated RBC % PT INR APTT Sodium 134 L Potassium 3.8 Chloride 102 Carbon Dioxide 22.0 Anion Gap 10 BUN 10 Creatinine 0.92 Estim Creat Clear Calc 60.71 Est GFR (MDRD) Af Amer 81 Est GFR (MDRD) Non-Af 67 BUN/Creatinine Ratio 10.9 Glucose 101 Calcium 9.0 Troponin I < 0.015 Triglycerides 282 H Cholesterol 201 H LDL Cholesterol 69 VLDL Cholesterol 56 H HDL Cholesterol 76 POC Glucose 98 Radiography Diagnostic Testing: Radiology Impression Brain CT 04/21/21 19:30 IMPRESSION: 1. No acute intracranial abnormality. There is minimal small vessel ischemia in the right frontal lobe. 2. Large peripherally calcified structure at the right skull base which may represent a large partly calcified aneurysm of the distal right internal carotid artery. Further evaluation with CTA of the carotid and cranial vessels is recommended. 3. Aspects score 10 Individualized dose optimization techniques were used for this CT. at 1945 Reported and signed by: Herminio Churchill MD Electronically Signed: Herminio Churchill MD at 19:44 EDT Tel , Service support , ADDENDUM: 04/21/211956 IMPRESSION: 1. No acute intracranial abnormality. There is minimal small vessel ischemia in the right frontal lobe. 2. Large peripherally calcified structure at the right skull base which may represent a large partly calcified aneurysm of the distal right internal carotid artery. Further evaluation with CTA of the carotid and cranial vessels is recommended. 3. Aspects score 10 Individualized dose optimization techniques were used for this CT. at 1945 Reported and signed by: Herminio Churchill MD N.B. : The above information has been verbally conveyed by Herminio Churchill MD to Jose L France MD, MD, on 04/21/2021 19:50:58 (ET). Electronically Signed: Herminio Churchill MD at 19:44 EDT Tel , Service support , Chest X-Ray 04/21/21 19:33 IMPRESSION: No radiographic evidence of acute cardiopulmonary disease. at 2009 Reported and signed by: Herminio Churchill MD Electronically Signed: Herminio Churchill MD at 20:08 EDT Tel , Service support , Head/Neck CTA 04/21/21 19:33 IMPRESSION: Large peripherally calcified aneurysm of the distal right internal carotid artery that extends from the C3 vertebral body up to the skull base. There is some soft plaque also present within the aneurysm. There is no evidence of rupture or leakage. No other abnormalities are identified. Individualized dose optimization techniques were used for this CT. at 1956 Reported and signed by: Herminio Churchill MD Electronically Signed: Herminio Churchill MD at 19:55 EDT Tel , Service support , ADDENDUM: 04/21/21 2013 IMPRESSION: Large peripherally calcified aneurysm of the distal right internal carotid artery that extends from the C3 vertebral body up to the skull base. There is some soft plaque also present within the aneurysm. There is no evidence of rupture or leakage. No other abnormalities are identified. Individualized dose optimization techniques were used for this CT. at 1956 Reported and signed by: Herminio Churchill MD N.B. : The above information has been verbally conveyed by Herminio Churchill MD to Jose L France MD, MD, on 04/21/2021 20:06:06 (ET). Electronically Signed: Herminio Churchill MD at 19:55 EDT Tel , Service support , Brain MRI 04/22/21 09:00 IMPRESSION: 1. Findings consistent with likely acute on chronic areas of right watershed zone punctate infarcts and mildly scattered within the basal ganglia and right temporal lobe corresponding to chronic areas of FLAIR signal within these regions. No large territorial ischemia is evident. 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 2. Partially viewed right skull base and right ICA large aneurysm better characterized on CTA 04/21/2021. Electronically Signed: Benigno Bryant DO at 10:49 EDT , Service support , Meaningful Use Info Meaningful Use Diagnoses (Choose all that apply): Ischemic CVA CVA Therapy Assessed for PT,OT and/or ST?: Yes Ischemic Stroke Antithrombotic order at d/c?: Yes Dx of Atrial fib/flutter?: No Anticoagulant at discharge?: No Reason anticoagulant not ordered: Treatment not Indicated Statins at discharge?: Yes Primary Dx Acute Ischemic CVA?: Yes IV tPA ordered during stay?: No Reason IV t-PA not ordered: Treatment not Indicated Discharge Plan Admission Admit Date/Time: 04/21/21 20:20 Primary Reason for Your Visit: headache, left hand weakness Attending Provider: Radha Maldonado Discharge Orders/Prescriptions Prescriptions: No Action cetirizine [Zyrtec] 10 mg Tablet 10 mg PO DAILY PRN (Reason: Allergy Symptoms) RF: 0 atorvastatin 10 mg tablet 10 mg DAILY RF: 0 metoprolol succinate 50 mg tablet extended release 24 hr 50 mg PO DAILY RF: 0 clopidogrel 75 mg tablet 75 mg DAILY RF: 0 alprazolam 0.5 mg tablet 0.5 mg DAILY RF: 0 amlodipine 10 mg tablet 10 mg DAILY RF: 0 hydrochlorothiazide 25 mg tablet 25 mg DAILY RF: 0 losartan 100 mg tablet 100 mg DAILY RF: 0 Fish Oil 1,000 mg Capsule 2 cap DAILY RF: 0 duloxetine 60 mg capsule,delayed release(DR/EC) 60 mg PO DAILY RF: 0 cholecalciferol (vitamin D3) [Vitamin D3] 125 mcg (5,000 unit) Tablet 125 mcg PO DAILY RF: 0 aspirin 325 mg Tablet 325 mg PO DAILY RF: 0 Referrals / Follow Up: PETE ARRINGTON [Other] PETE ARRINGTON [Other] Disposition Disposition (needs filled in before D/C Order can be placed): Acute Care Hospital Visit Charges Inpatient E&M: 12546 Disch Hosp
--- NOTE | 2021-04-22 16:12 | NURSING ---
report called to [facility], spoke with YESSENIA Casey, transpor to be here approx @ 1700. To go to room 341-B
== END 2021-04-22 17:10 | disposition short-term general hospital (02) | DRG 103 ==
LOC: ED 20:00 → PCU 21:02
PROVIDERS: Admitting Provider Hospitalist; Emergency Provider Emergency Medicine; Visit Provider Student in an Organized Health Care Education/Training Program
DX: G43.909 Migraine, unspecified, not intractable, without status migrainosus (principal); G81.94 Hemiplegia, unspecified affecting left nondominant side; E78.5 Hyperlipidemia, unspecified; I10 Essential (primary) hypertension; K21.9 Gastro-esophageal reflux disease without esophagitis; F32.9 Major depressive disorder, single episode, unspecified; F41.9 Anxiety disorder, unspecified; R29.707 NIHSS score 7; R29.810 Facial weakness; I72.0 Aneurysm of carotid artery; Z79.899 Other long term (current) drug therapy; Z79.02 Long term (current) use of antithrombotics/antiplatelets; Z79.82 Long term (current) use of aspirin
CPT/HCPCS: 70450; 70496; 70498; 70551; 71045; 80048; 80061; 82962; 84484; 85025; 85610; 85730; 93005; 97162; 97165; 99284; J7030; Q9967; A4216